=== PATIENT | female | born 1960 | race Caucasian/White ===

== ENCOUNTER 2017-12-13 10:33 | Emergency (ER) | payer MEDICARE, OTHER ==
[2017-12-13 12:26] LABS: Bilirubin Negative (Negative); Blood, Urine Negative (Negative); Clarity Clear (Clear); Glucose, Urine (Dipstick) Negative (Negative); Leukocyte Small (Negative); Nitrite Negative (Negative); Protein, Urine (Dipstick) Negative (Neg-Trace); Specific Gravity, Urine 1.025 (1.005-1.030); Urobilinogen 0.2 mg/dL (0.2-1.0); pH, Urine 5.5 (5.0-9.0)
[2017-12-13 12:28] LABS: Bacteria/HPF Rare-Few HPF (None Seen); Other Microscopic Description C&S SET UP; RBC/HPF 0-3 HPF (0-3); Squamous Epithelial 0-3 HPF (0-3)
== END 2017-12-13 12:45 | disposition home or self-care (01) ==
LOC: MADERS 10:33
DX: N39.0 Urinary tract infection, site not specified (principal); I10 Essential (primary) hypertension; F41.9 Anxiety disorder, unspecified; F32.9 Major depressive disorder, single episode, unspecified; Z86.73 Personal history of transient ischemic attack (TIA), and cerebral infarction without residual deficits; Z79.899 Other long term (current) drug therapy; Z79.82 Long term (current) use of aspirin
CPT/HCPCS: 81003; 81015; 87086; 99283

== ENCOUNTER 2017-12-24 15:28 | Emergency (ER) | payer MEDICARE, OTHER ==
[2017-12-24] MEDS ORDERED: Acetaminophen 500 MG TAB ONE (16:37)
== END 2017-12-24 16:58 | disposition home or self-care (01) ==
LOC: MADERS 15:28
DX: R10.9 Unspecified abdominal pain (principal); I10 Essential (primary) hypertension; F32.9 Major depressive disorder, single episode, unspecified; Z79.899 Other long term (current) drug therapy; Z86.73 Personal history of transient ischemic attack (TIA), and cerebral infarction without residual deficits; Z79.82 Long term (current) use of aspirin
CPT/HCPCS: 99283

== ENCOUNTER 2018-01-04 13:53 | Outpatient (CLI) | payer MEDICARE, OTHER ==
--- NOTE | 2018-01-04 15:43 | RAD ---
RIGHT KNEE FOUR VIEWS: History: Right knee pain. FINDINGS/IMPRESSION: No fracture, dislocation, or bony destruction is seen. There is soft tissue density in the suprapatel lar, suspicious for a joint effusion. Mild degenerative changes are noted. POS: [facility]
== END 2018-01-04 13:54 | disposition home or self-care (01) ==
LOC: MADRAD 13:53
PROVIDERS: ATTEND Family Medicine
DX: M25.561 Pain in right knee (principal); M17.11 Unilateral primary osteoarthritis, right knee; M79.89 Other specified soft tissue disorders

== ENCOUNTER 2018-01-24 08:24 | Emergency (ER) | payer MEDICARE, OTHER ==
[2018-01-24 09:32] LABS: #Eosinphils 0.2 thou/uL (0.0-0.7); #Lymphocytes 1.3 thou/uL (1.20-3.40); #Monocytes 0.5 thou/uL (0.11-0.59); #Neutrophils 3.8 thou/uL (1.40-6.50); %Basophils 0.6 % (0.0-1.0); %Eosinophils 3.3 % (0.0-10.0); %Lymphocytes 22.4 % (21.0-51.0); %Monocytes 8.3 % (0.0-10.0); %Neutrophils 65.3 % (42.0-75.0); Hemoglobin 12.4 g/dL (12.0-16.0); Mean Corpuscular HGB CONC 31.5 g/dL (32.0-36.0); Mean Corpuscular Hemoglobin 27.2 pg (27.0-31.0); Mean Corpuscular Volume 86.4 fL (78.0-98.0); Platelet Count 316 thou/uL (130-400); RBC Distribution Width 15.9 % (11.5-14.5); Red Blood Cell (RBC) Count 4.57 mill/uL (4.20-5.40); White Blood Cell (WBC) Count 5.8 thou/uL (4.8-10.8)
[2018-01-24 09:51] LABS: ALT (SGPT) 8 U/L (8-55); AST (SGOT) 12 U/L (5-34); Albumin 3.6 g/dL (3.5-5.0); Alkaline Phosphatase 130 U/L (40-150); Anion Gap 13 mmol/L (10-20); BUN (Urea Nitrogen) 8 mg/dL (9.8-20.1); Bilirubin, Total 0.2 mg/dL (0.2-1.2); Calc. Creatinine Clearance 0 mL/min (70-130); Calcium 8.7 mg/dL (7.8-10.44); Carbon Dioxide 25 mmol/L (22-29); Chloride 112 mmol/L (98-107); Estimated GFR-MDRD 71; Globulin 2.9 g/dL (2.4-3.5); Glucose 92 mg/dL (70-105); Magnesium 2.4 mg/dL (1.6-2.6); Protein, Total 6.5 g/dL (6.0-8.3); Sodium 146 mmol/L (136-145)
[2018-01-24 11:59] LABS: Bilirubin Negative (Negative); Blood, Urine Negative (Negative); Clarity Clear (Clear); Glucose, Urine (Dipstick) Negative (Negative); Leukocyte Negative (Negative); Nitrite Negative (Negative); Protein, Urine (Dipstick) Negative (Neg-Trace); Specific Gravity, Urine 1.025 (1.005-1.030)
--- NOTE | 2018-01-24 12:38 | CT ---
CT OF THE HEAD WITHOUT CONTRAST: DATE: 01/24/2018. COMPARISON: None. HISTORY: Fall, trauma. TECHNIQUE: Axial CT imaging at 5 mm intervals from the vertex through the skull base without contrast. Coronal and sagittal reformatted imaging obtained. FINDINGS: The imaged paranasal sinuses/mastoid air cells are well aerated. No displaced calvarial fracture not ed. There is periventricular and deep white matter hypodensity, left greater than right, most prominent i n the left frontal region suggesting small-vessel disease/prior ischemia. No intracranial hemorrhage , midline shift, or mass effect. IMPRESSION: Chronic findings as detailed above. No displaced calvarial fracture or intracranial hemorrhage. POS: [facility]
== END 2018-01-24 12:40 | disposition short-term general hospital (02) ==
LOC: MADERS 08:24
DX: R29.6 Repeated falls (principal); Z86.73 Personal history of transient ischemic attack (TIA), and cerebral infarction without residual deficits; I10 Essential (primary) hypertension; F41.9 Anxiety disorder, unspecified; Z79.899 Other long term (current) drug therapy; Z79.82 Long term (current) use of aspirin
CPT/HCPCS: 70450; 80053; 81003; 83735; 84443; 85025

== ENCOUNTER 2018-03-07 13:15 | Emergency (ER) | payer MEDICARE, OTHER ==
[~2018-03-07 13:15] MED LIST: Nitroglycerin 50 MG/250 ML BOT ONE; Sodium Chloride 0.9% 100 ML BAG ONE
[2018-03-07] MEDS ORDERED: Lorazepam 2 MG/ML VIAL ONE (13:37)
[2018-03-07] MEDS ORDERED: Tranexamic Acid 1,000 MG/10 ML VIAL ONE (13:37)
[2018-03-07] MEDS ORDERED: Nitroglycerin 50 MG/250 ML BOT 0 ML ONE (13:38)
[2018-03-07] MEDS ORDERED: Midazolam HCl 10 mg/2 ml Vial ONE (13:48)
[2018-03-07] MEDS ORDERED: Fentanyl 100 MCG/2 ML VIAL ONE (13:59)
--- NOTE | 2018-03-07 14:06 | CT ---
CT CERVICAL SPINE NONCONTRAST: History Fall. Neck injury. FINDINGS: Vertebral height and alignment are maintained. Cervicothoracic junction is intact. No acute fractur e or dislocation. Multilevel disk space narrowing and diffuse mild to moderate osteophytosis. IMPRESSION: Degenerative changes of the cervical spine. No acute osseous abnormalities are demonstrated. POS: [facility]
--- NOTE | 2018-03-07 14:31 | CT ---
CT BRAIN: DATE: 03/07/2018. PROVIDED CLINICAL HISTORY: Head pain status post fall. FINDINGS: Comparison 01/24/2018. There is a large acute/hyperacute right cerebral convexity subdural hematoma. There is posttraumatic subarachnoid hemorrhage. There is shift of the midline structures by at [address] 2 cm right to left. There is uncal herniation. There is no ventriculomegaly. There is no eviden ce for a fracture. IMPRESSION: Large right cerebral convexity subdural hematoma and associated posttraumatic subarachnoid hemorrhage . Findings are communicated to Uriel in the emergency department at 1:44 p.m. 03/07/2018. CODE CR
--- NOTE | 2018-03-07 15:15 | RAD ---
PORTABLE AP CHEST XRAY: DATE: 03/07/2018. HISTORY: Intubation. Evaluate endotracheal tube placement. FINDINGS: Lung apices are excluded from view. Endotracheal tube is noted in place and overlies the origin of t he right mainstem bronchus. The visualized lungs are clear. Cardiac silhouette and pulmonary vascul ature appear within normal limits. IMPRESSION: 1. Endotracheal tube with tip overlying the origin of the right mainstem bronchus, and the endotrach eal tube should be withdrawn. 2. Exclusion of the lung apices. 3. The above findings were discussed with Dr. Sheldon in the emergency department on 03/07/[address] Sheldon noted that the endotracheal tube had already been withdrawn. CODE CR POS: [facility]
== END 2018-03-07 14:07 | disposition short-term general hospital (02) ==
LOC: MADERS 13:15
DX: S06.5X0A Traumatic subdural hemorrhage without loss of consciousness, initial encounter (principal); I10 Essential (primary) hypertension; F03.90 Unspecified dementia, unspecified severity, without behavioral disturbance, psychotic disturbance, mood disturbance, and anxiety; F41.9 Anxiety disorder, unspecified; F32.9 Major depressive disorder, single episode, unspecified; Z86.73 Personal history of transient ischemic attack (TIA), and cerebral infarction without residual deficits; W17.89XA Other fall from one level to another, initial encounter
CPT/HCPCS: 70450; 71045; 72125; G0390; 31500; 96374; 96375; J2060; J2250; J3010; J7050